=== PATIENT | female | born 1960 | race Caucasian/White ===

== ENCOUNTER 2021-02-27 06:55 | Day surgery (SDC) | payer BC, OTHER ==
[~2021-02-27 06:55] MED LIST: Lactated Ringers 1,000 ML IV SCH; Lidocaine 1%/Sod Bicarbonate in NS 8.4% 1 ML Syringe IDERM PRN; Sodium Chloride 0.9% 10 ML Syringe FLUSH PRN
[2021-02-27] MEDS ORDERED: Lactated Ringers 1,000 ML IV SCH (07:00)
[2021-02-27] MEDS ORDERED: Sodium Chloride 0.9% 10 ML Syringe FLUSH PRN (07:00)
[2021-02-27] MEDS ORDERED: Lidocaine 1%/Sod Bicarbonate in NS 8.4% 1 ML Syringe IDERM PRN (07:00)
--- NOTE | 2021-02-27 07:14 | PCM.PREANE ---
Preanesthetic Assessment - Anesthesia/Transfusion/Family Hx Anesthesia History: No Prior Anesthesia (RAZA) Family History of Anesthesia Reaction: No Transfusion History: No Prior Transfusion(s) Intubation History: Unknown - Review of Systems General: No Symptoms Pulmonary: No Symptoms Cardiovascular: No Symptoms Gastrointestinal: No Symptoms Neurological: No Symptoms Other: Reports: None - Physical Assessment NPO Status Date: 02/27/21 NPO Status Time: 04:00 ASA Class: 2 Mental Status: Alert & Oriented x3 Airway Class: Mallampati = 1 Dentition: Reports: Normal Dentition Thyro-Mental Finger Breadths: 3 Mouth Opening Finger Breadths: 3 ROM/Head Extension: Full Lungs: Clear to Auscultation, Normal Respiratory Effort Cardiovascular: Regular Rate, Regular Rhythm - Allergies Allergies/Adverse Reactions: Allergies Allergy/AdvReac Type Severity Reaction Status Date / Time azithromycin Allergy Vomiting Verified 02/26/21 14:37 - Acknowledgements Anesthesia Type Planned: MAC Pt an Appropriate Candidate for the Planned Anesthesia: Yes Alternatives and Risks of Anesthesia Discussed w Pt/Guardian: Yes Pt/Guardian Understands and Agrees with Anesthesia Plan: Yes PreAnesthesia Questionnaire HEENT History: Reports: Impaired Vision, Sinusitis Cardiovascular History: Reports: High Cholesterol, Hypertension, Other (See Below) Other Cardiovascular History: carotid artherosclerosis Respiratory History: Reports: None Gastrointestinal History: Reports: Cholelithiasis, Other (See Below) Other Gastrointestinal History: post operative nausea and vomiting Genitourinary History: Reports: Other (See Below) Other Genitourinary History: hematuria [employer] History: Reports: None Musculoskeletal History: Reports: Neck Pain, Chronic (FROM noted) Neurological History: Reports: Headaches, Chronic Psychiatric History: Reports: Depression Endocrine/Metabolic History: Reports: None Hematologic History: Reports: None Immunologic History: Reports: None Oncologic (Cancer) History: Reports: None Dermatologic History: Reports: None - Past Surgical History Head Surgeries/Procedures: Reports: None HEENT Surgical History: Reports: LASIK, Tonsillectomy Cardiovascular Surgical History: Reports: None Respiratory Surgical History: Reports: None GI Surgical History: Reports: Cholecystectomy, Colonoscopy Female Surgical History: Reports: None Male Surgical History: Reports: None Endocrine Surgical History: Reports: None Neurological Surgical History: Reports: Other (See Below) Other Neurological Surgeries/Procedures: cervical neck surgery Musculoskeletal Surgical History: Reports: Other (See Below) Other Musculoskeletal Surgeries/Procedures:: spinal surgery Oncologic Surgical History: Reports: None Dermatological Surgical History: Reports: None - SUBSTANCE USE Tobacco Use Status *Q: Current Some Day Tobacco User Recreational Drug Use History: No - HOME MEDS Home Medications: Home Meds Aspirin 81 mg PO DAILY 02/26/21 [History] Cholecalciferol (Vitamin D3) [Vitamin D3] 2,000 unit PO DAILY 02/26/21 [History] Enalapril [Vasotec] 5 mg PO DAILY 02/26/21 [History] FLUoxetine HCl [Prozac] 40 mg PO DAILY 02/26/21 [History] Lactobacillus Combination No.4 [Probiotic] 1 cap PO DAILY 02/26/21 [History] Rosuvastatin [Crestor] 5 mg PO MOWEFR 02/26/21 [History] - CURRENT (IN HOUSE) MEDS Current Meds: Current Medications Lactated Ringer's (Ringers, Lactated) 1,000 mls @ 125 mls/hr IV ASDIRECTED [facility] Stop: 02/27/21 23:00 Lidocaine/Sodium Bicarbonate (Lidocaine 1%/Sod Bicarbonate In Ns 8.4% 1 Ml Syringe) 0.25 ml IDERM ONETIME PRN PRN Reason: Prior to IV Start Stop: 02/27/21 18:00 Sodium Chloride (Sodium Chloride 0.9% 10 Ml Syringe) 10 ml FLUSH ASDIRECTED PRN PRN Reason: Keep Vein Open Stop: 02/27/21 18:00 Discontinued Medications Lactated Ringer's (Ringers, Lactated) 1,000 mls @ 125 mls/hr IV ASDIRECTED [facility] Stop: 02/20/21 23:00 Lidocaine/Sodium Bicarbonate (Lidocaine 1%/Sod Bicarbonate In Ns 8.4% 1 Ml Syringe) 0.25 ml IDERM ONETIME PRN PRN Reason: Prior to IV Start Stop: 02/20/21 18:00 Sodium Chloride (Sodium Chloride 0.9% 10 Ml Syringe) 10 ml FLUSH ASDIRECTED PRN PRN Reason: Keep Vein Open Stop: 02/20/21 18:00
[2021-02-27] MEDS ORDERED: Propofol 200 MG/20 ML SDV ONE ×2 (07:24→08:10)
[2021-02-27] MEDS ORDERED: Lidocaine 1% 4 ML ONE (07:24)
--- NOTE | 2021-02-27 08:39 | PCM.PRNOTE ---
- Free Text/Narrative Note: Date: 02/27/2021 Procedure: screening colonoscopy History: last scope 10 years ago, mother diagnosed with rectal cancer in her 70s Endoscopist: Rogelio Storey MD Findings: good prep. Three small polyps removed; one at cecum, splenic flexure, and rectosigmoid junction. Sigmoid diverticulosis. Detailed Report: The patient was taken to the endoscopy suite and placed in left lateral decubitus position. Timeout was performed and monitored anesthesia care was initiated. Visual inspection of the anus revealed no abnormality. Digital rectal exam was unremarkable; a small stool ball was palpated and removed. The colonoscope was inserted and advanced all the way to the cecum with ease. The appendiceal orifice was visualized. The prep was overall pretty good, there was a fair amount of bubbles throughout the colon. The scope was slowly withdrawn and mucosal surfaces carefully inspected. Within the cecum, a diminutive benign-appearing pedunculated polyp measuring a few millimeters was removed entirely with cold biopsy forceps. Near the splenic flexure, a similar appearing pedunculated lesion was removed in identical fashion. Diverticular disease was noted in the sigmoid colon. At what appeared to be the rectosigmoid junction, a sessile 5 mm polypoid lesion was identified. This was removed pie cemeal using cold forceps. On retroflexion in the rectum, hypertrophied anal papilla were identified. There was no significant hemorrhoidal disease. Air was suctioned from the distal colon and rectum prior to withdrawal of the scope. The patient tolerated the procedure well.
--- NOTE | 2021-02-27 08:42 | PCM48HPAN ---
Post Anesthesia Note - EVALUATION WITHIN 48HRS OF ANESTHETIC Vital Signs in Normal Range: Yes Patient Participated in Evaluation: Yes Respiratory Function Stable: Yes Airway Patent: Yes Cardiovascular Function Stable: Yes Hydration Status Stable: Yes Pain Control Satisfactory: Yes Nausea and Vomiting Control Satisfactory: Yes Mental Status Recovered: Yes Vital Signs: Last Vital Signs Temp 36.3 C 02/27/21 07:10 Pulse 69 02/27/21 07:10 Resp 18 02/27/21 07:10 BP 137/57 L 02/27/21 07:10 Pulse Ox 96 02/27/21 07:10
[2021-02-27 09:25] VITALS: BP 112/67; PULSE 64
== END 2021-02-27 09:18 | disposition home or self-care (01) ==
LOC: JD.SDS 06:55
PROVIDERS: ATTEND Surgery
DX: Z12.11 Encounter for screening for malignant neoplasm of colon (principal); D12.3 Benign neoplasm of transverse colon; D12.5 Benign neoplasm of sigmoid colon; K57.30 Diverticulosis of large intestine without perforation or abscess without bleeding; K64.4 Residual hemorrhoidal skin tags; I10 Essential (primary) hypertension; E78.00 Pure hypercholesterolemia, unspecified; F17.210 Nicotine dependence, cigarettes, uncomplicated; Z88.1 Allergy status to other antibiotic agents; Z79.82 Long term (current) use of aspirin; Z79.899 Other long term (current) drug therapy; Z80.0 Family history of malignant neoplasm of digestive organs; Z98.890 Other specified postprocedural states
CPT/HCPCS: 45380; J2704; J7120; 00812